=== PATIENT | female | born 1950 | race African-American/Black ===

== ENCOUNTER 2024-01-20 12:38 | Inpatient (IN) | payer BC, MEDICARE ==
[~2024-01-20] VITALS: Ht 170.2 cm; Wt 93.0 kg
[2024-01-20 12:40] VITALS: O2SAT 98
[2024-01-20] MEDS: HYDROCODONE/ACETAMINOPHEN 5/325MG TABLET PO STA (13:48)
[2024-01-20] MEDS ORDERED: ONDANSETRON HCL 4MG/2ML INJ IV STA (14:51)
[2024-01-20] MEDS ORDERED: MORPHINE SULFATE 4 MG/ML INJ (FOR IV/IM USE) IV STA (14:51)
[2024-01-20 16:26] LABS: BASOPHILS % 0.2 % (0.0-2.0); EOSINOPHILS % 0.7 % (0.0-5.0); HEMATOCRIT. 37.9 % (36.0-48.0); HEMOGLOBIN. 12.1 g/dL (12.0-16.0); LYMPHOCYTES % 9.7 % (20.0-50.0); MEAN CORPUSCULAR HEMOGLOBIN 28.7 pg (28.0-32.0); MEAN CORPUSCULAR HGB CONC 31.8 g/dL (31.0-37.0); MEAN CORPUSCULAR VOLUME 90.2 fL (81.0-99.0); MEAN PLATELET VOLUME 9.4 fl (7.4-10.4); MONOCYTES % 4.6 % (2.0-8.0); NEUTROPHILS % 84.8 % (40.0-76.0); PLATELET 187 x1000/uL (130-400); RED BLOOD CELL COUNT 4.21 mill/uL (4.2-5.4); RED CELL DISTRIBUTION WIDTH 15.7 % (11.6-14.6); WHITE BLOOD COUNT 9.9 x1000/uL (4.5-11.0)
[2024-01-20 16:28] LABS: CHLORIDE 112 mEq/L (98-107); POTASSIUM 4.1 mEq/L (3.5-5.1); SODIUM 140 mEq/L (136-145)
[2024-01-20 16:29] LABS: CALCIUM 9.5 mg/dL (8.7-10.4); CARBON DIOXIDE 26 mEq/L (21-32)
[2024-01-20 16:34] LABS: CREATININE 0.9 mg/dL (0.6-1.0); GLUCOSE 123 mg/dL (70-105); UREA NITROGEN BLOOD 20 mg/dL (9-23)
[2024-01-20 16:36] LABS: PROTHROMBIN TIME 10.8 sec (9.6-11.0)
[2024-01-20] MEDS: ONDANSETRON HCL 4MG/2ML INJ IV NR (17:54)
[2024-01-20] MEDS: MORPHINE SULFATE 4 MG/ML INJ (FOR IV/IM USE) IV NR (17:55)
[2024-01-20 19:02] LABS: CLARITY URINE CLEAR (CLEAR); COLOR URINE YELLOW (YELLOW); GLUCOSE URINE NEGATIVE (NEGATIVE); KETONES URINE NEGATIVE (NEGATIVE); LEUKOCYTE ESTERASE URINE 1+ (NEGATIVE); NITRITE URINE NEGATIVE (NEGATIVE); OCCULT BLOOD URINE NEGATIVE (NEGATIVE); PH URINE 6.5 (4.5-8.0); PROTEIN URINE NEGATIVE (NEGATIVE); SPECIFIC GRAVITY URINE 1.016 (1.005-1.030); UROBILINOGEN URINE 0.2 E.U./dL (0.2-1.0)
[2024-01-20 19:09] LABS: BACTERIA URINE 1+; RBC URINE 0-2 /hpf (0-2); SQUAMOUS EPITHELIAL CELL URINE 1+ /lpf (RARE/1+)
[2024-01-20 23:30] VITALS: BP 131/65; PULSE 72; RESP 20; TEMP 36.5292
[2024-01-21] VITALS: BP 131/65; PULSE 72; RESP 20; TEMP 36.28068; O2SAT 97
[2024-01-21] MEDS ORDERED: AMLO5TAB4 PO (01:13)
[2024-01-21] MEDS ORDERED: LOSA25TA26 PO (01:15)
[2024-01-21] MEDS ORDERED: PANT40SU PO (01:16)
[2024-01-21] MEDS ORDERED: ASPI-1497 PO (01:17)
[2024-01-21] MEDS: HYDROCODONE/ACETAMINOPHEN 5/325MG TABLET PO PRN (01:51)
[2024-01-21 04:00] VITALS: BP 110/63; PULSE 68; RESP 20; TEMP 36.28068; O2SAT 98
[2024-01-21 08:00] VITALS: BP 100/71; PULSE 62; RESP 13; TEMP 36.33624; O2SAT 96
[2024-01-21 12:00] VITALS: BP 104/66; PULSE 67; RESP 20; TEMP 37.2252; O2SAT 100
[2024-01-21] MEDS: HYDROCODONE/ACETAMINOPHEN 10/325MG TABLET PO PRN (12:02)
[2024-01-21 16:00] VITALS: BP 99/66; PULSE 70; RESP 18; TEMP 36.6696; O2SAT 100
[2024-01-21] MEDS ORDERED: CLONIDINE 0.1MG TABLET PO PRN (16:30)
[2024-01-21] MEDS ORDERED: IPRATROPIUM/ALBUTEROL 0.5-3(2.5)MG/3ML NEB HHN PRN (16:30)
[2024-01-21] MEDS ORDERED: ACETAMINOPHEN 325MG TABLET PO PRN (16:30)
[2024-01-21] MEDS ORDERED: DOCUSATE SODIUM 100MG CAPSULE PO PRN (16:30)
[2024-01-21] MEDS ORDERED: ONDANSETRON HCL 4MG/2ML INJ IV PRN (16:30)
[2024-01-21 18:33] LABS: BASOPHILS % 0.4 % (0.0-2.0); EOSINOPHILS % 4.5 % (0.0-5.0); HEMATOCRIT. 37.6 % (36.0-48.0); LYMPHOCYTES % 13.2 % (20.0-50.0); MEAN CORPUSCULAR HEMOGLOBIN 28.5 pg (28.0-32.0); MEAN CORPUSCULAR HGB CONC 31.9 g/dL (31.0-37.0); MEAN CORPUSCULAR VOLUME 89.2 fL (81.0-99.0); MEAN PLATELET VOLUME 9.6 fl (7.4-10.4); MONOCYTES % 6.6 % (2.0-8.0); NEUTROPHILS % 75.3 % (40.0-76.0); PLATELET 170 x1000/uL (130-400); RED BLOOD CELL COUNT 4.22 mill/uL (4.2-5.4); RED CELL DISTRIBUTION WIDTH 15.2 % (11.6-14.6); WHITE BLOOD COUNT 6.9 x1000/uL (4.5-11.0)
[2024-01-21 18:42] LABS: CHLORIDE 110 mEq/L (98-107); POTASSIUM 3.6 mEq/L (3.5-5.1); SODIUM 140 mEq/L (136-145)
[2024-01-21 18:43] LABS: CALCIUM 9.1 mg/dL (8.7-10.4); CARBON DIOXIDE 22 mEq/L (21-32)
[2024-01-21 18:48] LABS: GLUCOSE 76 mg/dL (70-105); TRIGLYCERIDE 65 mg/dL (0-150)
[2024-01-21 18:49] LABS: ALBUMIN 4.1 g/dL (3.2-4.8); BILIRUBIN TOTAL 0.2 mg/dL (0.1-1.0); LDL CHOLESTEROL 22 mg/dL (5-100); UREA NITROGEN BLOOD 17 mg/dL (9-23)
[2024-01-21 18:50] LABS: ALANINE AMINOTRANSFERASE 18 IU/L (10-49); ASPARTATE AMINOTRANSFERASE 26 IU/L (<34); CHOLESTEROL 92 mg/dL (<200); CREATINE KINASE 245 IU/L (34-145); HDL CHOLESTEROL 50 mg/dL (>65); PROTEIN TOTAL 6.1 g/dL (6.0-8.3)
[2024-01-21 18:51] LABS: PHOSPHORUS 3.3 mg/dL (2.5-4.9)
[2024-01-21] MEDS: CEFTRIAXONE 1GM/50ML 50 ML IV SCH (18:55)
[2024-01-21 19:41] LABS: BILIRUBIN DIRECT < 0.1 mg/dL (<=3.0)
[2024-01-21 20:00] VITALS: BP 121/78; PULSE 77; RESP 18; TEMP 35.22504
[2024-01-21] MEDS: HYDRALAZINE HCL 25MG TABLET PO SCH (21:44)
[2024-01-22] VITALS: BP 109/63; PULSE 78; RESP 17; TEMP 36.61404; O2SAT 98
[2024-01-22 04:00] VITALS: BP 105/78; PULSE 72; RESP 18; TEMP 34.61388; O2SAT 94
[2024-01-22] MEDS: DEXT 5%/0.45% NACL 1000ML 1,000 ML IV SCH (06:16)
[2024-01-22 07:48] LABS: CALCIUM 9.3 mg/dL (8.7-10.4); CHLORIDE 109 mEq/L (98-107); POTASSIUM 3.4 mEq/L (3.5-5.1); SODIUM 139 mEq/L (136-145)
[2024-01-22 07:49] LABS: CARBON DIOXIDE 23 mEq/L (21-32)
[2024-01-22 07:51] LABS: BASOPHILS % 0.4 % (0.0-2.0); EOSINOPHILS % 4.7 % (0.0-5.0); HEMATOCRIT. 36.8 % (36.0-48.0); HEMOGLOBIN. 11.5 g/dL (12.0-16.0); LYMPHOCYTES % 15.9 % (20.0-50.0); MEAN CORPUSCULAR HEMOGLOBIN 27.7 pg (28.0-32.0); MEAN CORPUSCULAR HGB CONC 31.3 g/dL (31.0-37.0); MEAN CORPUSCULAR VOLUME 88.3 fL (81.0-99.0); MEAN PLATELET VOLUME 9.7 fl (7.4-10.4); MONOCYTES % 6.8 % (2.0-8.0); NEUTROPHILS % 72.2 % (40.0-76.0); PLATELET 158 x1000/uL (130-400); RED BLOOD CELL COUNT 4.17 mill/uL (4.2-5.4); RED CELL DISTRIBUTION WIDTH 15.3 % (11.6-14.6); WHITE BLOOD COUNT 6.7 x1000/uL (4.5-11.0)
[2024-01-22 07:54] LABS: CREATININE 0.7 mg/dL (0.6-1.0); GLUCOSE 108 mg/dL (70-105); UREA NITROGEN BLOOD 14 mg/dL (9-23)
[2024-01-22 08:00] VITALS: BP 110/71; PULSE 68; RESP 18; TEMP 36.3918; O2SAT 98
[2024-01-22] MEDS: PANTOPRAZOLE SODIUM 40 MG/VIAL IV SCH (09:15)
[2024-01-22 12:00] VITALS: BP 106/55; PULSE 79; RESP 16; TEMP 36.9474; O2SAT 96
[2024-01-22] MEDS: KCL 20MEQ/100ML PREMIX 100 ML IV SCH (12:30)
[2024-01-22] MEDS: ACETAMINOPHEN 325MG TABLET PO PRN (12:30)
[2024-01-22] MEDS ORDERED: POLYMYXIN B SULFATE 500000 UNITS/VIAL ONE (13:19)
[2024-01-22] MEDS ORDERED: LIDOCAINE HCL 1% 20ML VIAL ONE (13:19)
[2024-01-22] MEDS ORDERED: VANCOMYCIN HCL 1GM VIAL ONE (13:19)
[2024-01-22] MEDS ORDERED: LIDOCAINE HCL/EPINEPHRINE 1%-EPI 1:100,000 20ML VIAL ONE (13:36)
[2024-01-22] MEDS ORDERED: ONDANSETRON HCL 4MG/2ML INJ IV PRN ×2 (14:45→16:15)
[2024-01-22] MEDS ORDERED: NALOXONE HCL 0.4MG/ML VIAL IV PRN (15:00)
[2024-01-22] MEDS ORDERED: FENTANYL CITRATE/PF 50MCG/ML 2ML VIAL ONE (15:06)
[2024-01-22] MEDS ORDERED: PROPOFOL 200MG/20ML VIAL IV ONE (15:07)
[2024-01-22] MEDS ORDERED: LIDOCAINE HCL/PF 1% 10 MG/ML 5ML VIAL ONE (15:17)
[2024-01-22] MEDS ORDERED: ONDANSETRON HCL 4MG/2ML INJ ONE (15:17)
[2024-01-22] MEDS ORDERED: EPHEDRINE SULFATE 50MG/ML VIAL ONE (15:17)
[2024-01-22] MEDS ORDERED: METOCLOPRAMIDE HCL 10MG/2ML VIAL ONE (15:17)
[2024-01-22] MEDS ORDERED: CEFAZOLIN SODIUM 1000MG/VIAL ONE (15:43)
[2024-01-22] MEDS: FENTANYL CITRATE/PF 50MCG/ML 2ML VIAL IV PRN (16:31)
[2024-01-22] MEDS: HYDROMORPHONE HCL/PF 2MG/ML INJ IV PRN (17:52)
[2024-01-22 20:00] VITALS: BP 132/65; PULSE 88; RESP 17; TEMP 36.3918; O2SAT 95
[2024-01-22] MEDS: HYDROCODONE/ACETAMINOPHEN 5/325MG TABLET PO PRN (22:02)
[2024-01-23 04:00] VITALS: BP 106/58; PULSE 75; RESP 17; TEMP 36.50292; O2SAT 96
[2024-01-23 07:19] LABS: CHLORIDE 111 mEq/L (98-107); POTASSIUM 3.6 mEq/L (3.5-5.1); SODIUM 142 mEq/L (136-145)
[2024-01-23 07:20] LABS: CARBON DIOXIDE 22 mEq/L (21-32)
[2024-01-23 07:25] LABS: CREATININE 0.7 mg/dL (0.6-1.0); GLUCOSE 112 mg/dL (70-105); UREA NITROGEN BLOOD 12 mg/dL (9-23)
[2024-01-23 07:31] LABS: BASOPHILS % 0.3 % (0.0-2.0); EOSINOPHILS % 3.2 % (0.0-5.0); HEMATOCRIT. 36.5 % (36.0-48.0); HEMOGLOBIN. 11.7 g/dL (12.0-16.0); LYMPHOCYTES % 10.8 % (20.0-50.0); MEAN CORPUSCULAR HEMOGLOBIN 28.9 pg (28.0-32.0); MEAN CORPUSCULAR HGB CONC 32.1 g/dL (31.0-37.0); MEAN CORPUSCULAR VOLUME 89.9 fL (81.0-99.0); MEAN PLATELET VOLUME 9.6 fl (7.4-10.4); MONOCYTES % 8.7 % (2.0-8.0); PLATELET 130 x1000/uL (130-400); RED BLOOD CELL COUNT 4.06 mill/uL (4.2-5.4); RED CELL DISTRIBUTION WIDTH 15.5 % (11.6-14.6); WHITE BLOOD COUNT 7.2 x1000/uL (4.5-11.0)
[2024-01-23 08:00] VITALS: BP 117/73; PULSE 63; RESP 18; TEMP 37.05852; O2SAT 100
[2024-01-23] MEDS: ENOXAPARIN 40MG/0.4ML SYR SUBCUT SCH (09:22)
[2024-01-23 12:00] VITALS: BP 129/50; PULSE 75; RESP 18; TEMP 36.6696; O2SAT 100
[2024-01-23] MEDS: HYDROCODONE/ACETAMINOPHEN 5/325MG TABLET PO PRN (12:07)
[2024-01-23] MEDS: DIPHENHYDRAMINE 50MG/ML VIAL IV NR (12:52)
[2024-01-23 16:00] VITALS: BP 102/71; PULSE 76; RESP 18; TEMP 36.6696; O2SAT 100
[2024-01-23] MEDS: HYDROCODONE/ACETAMINOPHEN 10/325MG TABLET PO PRN (17:32)
[2024-01-23 20:00] VITALS: BP 104/62; PULSE 75; RESP 20; TEMP 36.72516; O2SAT 97
[2024-01-24 04:00] VITALS: BP 119/72; PULSE 72; RESP 20; TEMP 36.33624
[2024-01-24 06:11] LABS: BASOPHILS % 0.3 % (0.0-2.0); EOSINOPHILS % 2.8 % (0.0-5.0); HEMATOCRIT. 38.5 % (36.0-48.0); HEMOGLOBIN. 12.5 g/dL (12.0-16.0); LYMPHOCYTES % 11.3 % (20.0-50.0); MEAN CORPUSCULAR HEMOGLOBIN 29.3 pg (28.0-32.0); MEAN CORPUSCULAR HGB CONC 32.4 g/dL (31.0-37.0); MEAN CORPUSCULAR VOLUME 90.4 fL (81.0-99.0); MEAN PLATELET VOLUME 9.8 fl (7.4-10.4); MONOCYTES % 7.6 % (2.0-8.0); PLATELET 103 x1000/uL (130-400); RED BLOOD CELL COUNT 4.26 mill/uL (4.2-5.4); RED CELL DISTRIBUTION WIDTH 15.6 % (11.6-14.6); WHITE BLOOD COUNT 8.6 x1000/uL (4.5-11.0)
[2024-01-24 06:27] LABS: CALCIUM 9.3 mg/dL (8.7-10.4); CARBON DIOXIDE 22 mEq/L (21-32); CHLORIDE 112 mEq/L (98-107); POTASSIUM 3.7 mEq/L (3.5-5.1); SODIUM 143 mEq/L (136-145)
[2024-01-24 06:30] LABS: DIFFERENTIAL COMMENT 1
[2024-01-24 06:32] LABS: CREATININE 0.6 mg/dL (0.6-1.0); GLUCOSE 97 mg/dL (70-105); UREA NITROGEN BLOOD 10 mg/dL (9-23)
[2024-01-24 08:00] VITALS: BP 129/67; PULSE 68; RESP 20; TEMP 36.33624; O2SAT 100
[2024-01-24 10:20] LABS: PROTHROMBIN TIME 11.6 sec (9.6-11.0)
[2024-01-24 12:00] VITALS: BP 123/73; PULSE 59; RESP 18; TEMP 36.16956; O2SAT 97
[2024-01-24 16:00] VITALS: BP 113/69; PULSE 79; RESP 19; TEMP 36.114; O2SAT 96
[2024-01-24 20:00] VITALS: BP 138/75; PULSE 48; RESP 20; TEMP 36.22512; O2SAT 95
[2024-01-25] VITALS: BP 144/78; PULSE 64; RESP 20; TEMP 36.22512; O2SAT 99
[2024-01-25 04:00] VITALS: BP 138/88; PULSE 68; RESP 20; TEMP 36.22512; O2SAT 99
[2024-01-25 07:40] LABS: BASOPHILS % 0.4 % (0.0-2.0); EOSINOPHILS % 4.8 % (0.0-5.0); HEMATOCRIT. 34.2 % (36.0-48.0); HEMOGLOBIN. 11.2 g/dL (12.0-16.0); LYMPHOCYTES % 16.4 % (20.0-50.0); MEAN CORPUSCULAR HGB CONC 32.7 g/dL (31.0-37.0); MEAN CORPUSCULAR VOLUME 88.7 fL (81.0-99.0); MEAN PLATELET VOLUME 9.6 fl (7.4-10.4); MONOCYTES % 9.1 % (2.0-8.0); NEUTROPHILS % 69.3 % (40.0-76.0); PLATELET 141 x1000/uL (130-400); RED BLOOD CELL COUNT 3.86 mill/uL (4.2-5.4); RED CELL DISTRIBUTION WIDTH 15.7 % (11.6-14.6); WHITE BLOOD COUNT 7.1 x1000/uL (4.5-11.0)
[2024-01-25 08:00] VITALS: BP 120/81; PULSE 69; RESP 20; TEMP 36.28068; O2SAT 100
[2024-01-25 12:00] VITALS: BP 133/83; PULSE 68; RESP 20; TEMP 36.16956; O2SAT 98
[2024-01-25 16:00] VITALS: BP 136/65; PULSE 69; RESP 19; TEMP 36.28068; O2SAT 97
[2024-01-25 20:00] VITALS: BP 124/82; PULSE 69; RESP 20; TEMP 36.3918; O2SAT 96
[2024-01-25] MEDS: ZOLPIDEM TARTRATE 5MG TABLET PO PRN (22:02)
[2024-01-26] VITALS: BP 183/60; PULSE 78; RESP 20; TEMP 36.3918; O2SAT 97
[2024-01-26 04:00] VITALS: BP 153/93; PULSE 63; RESP 20; TEMP 36.22512; O2SAT 97
[2024-01-26 09:35] VITALS: BP 124/82; PULSE 64; RESP 18; TEMP 36.6696; O2SAT 100
[2024-01-26] MEDS: FAMOTIDINE 20MG/2ML VIAL IV SCH (10:19)
[2024-01-26 12:00] VITALS: BP 132/77; PULSE 87; RESP 18; TEMP 36.114; O2SAT 97
[2024-01-26] MEDS: HYDROCODONE/ACETAMINOPHEN 5/325MG TABLET PO PRN (14:19)
[2024-01-26] MEDS: HYDRALAZINE HCL 50MG TABLET PO SCH (14:19)
[2024-01-26 16:29] VITALS: BP 110/72; PULSE 87; RESP 18; TEMP 36.114; O2SAT 96
[2024-01-26 20:00] VITALS: BP 137/84; PULSE 70; RESP 18; TEMP 36.28068; O2SAT 95
[2024-01-27 04:00] VITALS: BP 140/85; PULSE 61; RESP 18; TEMP 36.16956; O2SAT 95
[2024-01-27 07:42] LABS: BASOPHILS % 0.8 % (0.0-2.0); EOSINOPHILS % 3.4 % (0.0-5.0); HEMATOCRIT. 36.7 % (36.0-48.0); HEMOGLOBIN. 11.5 g/dL (12.0-16.0); LYMPHOCYTES % 18.1 % (20.0-50.0); MEAN CORPUSCULAR HEMOGLOBIN 28.3 pg (28.0-32.0); MEAN CORPUSCULAR HGB CONC 31.4 g/dL (31.0-37.0); MEAN PLATELET VOLUME 10.1 fl (7.4-10.4); MONOCYTES % 5.9 % (2.0-8.0); NEUTROPHILS % 71.8 % (40.0-76.0); PLATELET 149 x1000/uL (130-400); RED BLOOD CELL COUNT 4.08 mill/uL (4.2-5.4); RED CELL DISTRIBUTION WIDTH 15.8 % (11.6-14.6); WHITE BLOOD COUNT 5.9 x1000/uL (4.5-11.0)
[2024-01-27 07:55] LABS: CALCIUM 8.7 mg/dL (8.7-10.4); CARBON DIOXIDE 20 mEq/L (21-32); CHLORIDE 116 mEq/L (98-107); POTASSIUM 3.5 mEq/L (3.5-5.1); SODIUM 145 mEq/L (136-145)
[2024-01-27 07:59] LABS: CREATININE 0.7 mg/dL (0.6-1.0); GLUCOSE 88 mg/dL (70-105)
[2024-01-27 08:00] VITALS: BP 143/79; PULSE 71; RESP 19; TEMP 36.44736; O2SAT 97
[2024-01-27 08:01] LABS: UREA NITROGEN BLOOD 10 mg/dL (9-23)
[2024-01-27] MEDS: LOPERAMIDE HCL 2MG CAPSULE PO PRN (11:21)
[2024-01-27 12:00] VITALS: BP 135/82; PULSE 62; RESP 19; TEMP 36.9474; O2SAT 98
[2024-01-27] MEDS ORDERED: LOPERAMIDE 2MG/15ML UDC PO ONE (12:00)
[2024-01-27] MEDS ORDERED: HYDROCODONE/ACETAMINOPHEN 10/325MG TABLET PO PRN (12:00)
[2024-01-27 16:00] VITALS: BP 102/69; PULSE 91; RESP 20; TEMP 37.05852; O2SAT 97
[2024-01-27 20:00] VITALS: BP 125/83; PULSE 57; RESP 21; TEMP 36.83628; O2SAT 97
[2024-01-27] MEDS: HYDROCODONE/ACETAMINOPHEN 10/325MG TABLET PO PRN (22:36)
[2024-01-28 07:17] LABS: BASOPHILS % 0.8 % (0.0-2.0); CHLORIDE 115 mEq/L (98-107); EOSINOPHILS % 5.2 % (0.0-5.0); HEMATOCRIT. 34.1 % (36.0-48.0); HEMOGLOBIN. 10.8 g/dL (12.0-16.0); LYMPHOCYTES % 20.2 % (20.0-50.0); MEAN CORPUSCULAR HEMOGLOBIN 28.5 pg (28.0-32.0); MEAN CORPUSCULAR HGB CONC 31.8 g/dL (31.0-37.0); MEAN CORPUSCULAR VOLUME 89.8 fL (81.0-99.0); MEAN PLATELET VOLUME 9.7 fl (7.4-10.4); MONOCYTES % 8.1 % (2.0-8.0); NEUTROPHILS % 65.7 % (40.0-76.0); PLATELET 163 x1000/uL (130-400); POTASSIUM 3.7 mEq/L (3.5-5.1); SODIUM 145 mEq/L (136-145); WHITE BLOOD COUNT 6.1 x1000/uL (4.5-11.0)
[2024-01-28 07:18] LABS: CALCIUM 8.9 mg/dL (8.7-10.4); CARBON DIOXIDE 22 mEq/L (21-32)
[2024-01-28 07:23] LABS: CREATININE 0.8 mg/dL (0.6-1.0); GLUCOSE 103 mg/dL (70-105)
[2024-01-28 07:24] LABS: UREA NITROGEN BLOOD 10 mg/dL (9-23)
[2024-01-28 07:25] LABS: ALANINE AMINOTRANSFERASE 12 IU/L (10-49); ALBUMIN 3.6 g/dL (3.2-4.8); ASPARTATE AMINOTRANSFERASE 17 IU/L (<34)
[2024-01-28 07:26] LABS: BILIRUBIN TOTAL 0.2 mg/dL (0.1-1.0); PHOSPHORUS 4.1 mg/dL (2.5-4.9); PROTEIN TOTAL 5.8 g/dL (6.0-8.3)
[2024-01-28 07:41] LABS: BILIRUBIN DIRECT < 0.1 mg/dL (<=3.0)
[2024-01-28 08:00] VITALS: BP 134/84; PULSE 71; RESP 19; TEMP 35.94732; O2SAT 98
[2024-01-28 12:00] VITALS: BP 97/97; PULSE 66; RESP 20; TEMP 35.78064; O2SAT 98
[2024-01-28 16:00] VITALS: BP 119/66; PULSE 64; RESP 19; TEMP 36.3918; TEMP 36.39180; O2SAT 96
[2024-01-28 20:21] VITALS: BP 120/85; PULSE 76; RESP 18
== END 2024-01-28 23:03 | DRG 481 ==
LOC: ER 13:16 → 6WST 17:47 → EDBEDREQTM 17:54 → EDBEDREQ 17:54
PROVIDERS: ADMIT Internal Medicine; ATTEND Internal Medicine
PROC: 0QH634Z Insertion of Internal Fixation Device into Right Upper Femur, Percutaneous Approach (ICD-10-PCS; principal; 2024-01-22)
DX: S72.031A Displaced midcervical fracture of right femur, initial encounter for closed fracture (principal); N39.0 Urinary tract infection, site not specified; I10 Essential (primary) hypertension; D64.9 Anemia, unspecified; G89.29 Other chronic pain; M54.16 Radiculopathy, lumbar region; Z82.49 Family history of ischemic heart disease and other diseases of the circulatory system; Z79.899 Other long term (current) drug therapy; Z86.73 Personal history of transient ischemic attack (TIA), and cerebral infarction without residual deficits; W01.0XXA Fall on same level from slipping, tripping and stumbling without subsequent striking against object, initial encounter; Y93.89 Activity, other specified; Y92.89 Other specified places as the place of occurrence of the external cause; Y99.8 Other external cause status
CPT/HCPCS: 36415; 71045; 72192; 73502; 73700; 76000; 80048; 80061; 80076; 81003; 82550; 83036; 83605; 83735; 83880; 84100; 84145; 85025; 86850; 86900; 93005; 93970; 97110; 97116; 97162; 97166; 97530; 99285; J0690; J0696; J1170; J1200; J1650; J2270; J2405; J2470; J2704; J2765; J3010; J3370; J3480; J3490; C1713; C1769